=== PATIENT | male | born 1960 | race Caucasian/White ===

== ENCOUNTER 2018-10-23 15:04 | Inpatient (IN) ==
[2018-10-23] MEDS ORDERED: NITROGLYCERIN 2% OINT 1 INCH/GM PACK TOP STA (15:35)
[2018-10-23] MEDS ORDERED: ASPIRIN 325 MG TABLET PO STA (15:35)
[2018-10-23] MEDS ORDERED: ENOXAPARIN 100 MG/ML SYRINGE SUBCUT STA (15:35)
[2018-10-23] MEDS ORDERED: NITROGLYCERIN SL 0.4 MG TABLET SL PRN (15:35)
[2018-10-23] MEDS ORDERED: MAGNESIUM SULF RIDER 2 GM in PREMIX 1 EACH IV PRN (15:48)
[2018-10-23] MEDS ORDERED: MORPHINE 4 MG/1 ML VIAL IV PRN (15:48)
[2018-10-23] MEDS ORDERED: ONDANSETRON 4 MG/2 ML VIAL IV PRN (15:48)
[2018-10-23] MEDS ORDERED: MAGNESIUM SULF RIDER 4 GM in PREMIX 1 EACH IV PRN (15:48)
[2018-10-23] MEDS ORDERED: SODIUM CHLORIDE 0.45% 1,000 ML IV SCH (16:00)
[2018-10-23] MEDS ORDERED: diphenhydrAMINE CAP 25 MG CAPSULE PO PRN (17:43)
[2018-10-23] MEDS ORDERED: NICOTINE 21 MG/24 HR PATCH TRANSDERM PRN (17:43)
[2018-10-23] MEDS ORDERED: diphenhydrAMINE CAP 25 MG CAPSULE PO ONE (17:43)
[2018-10-23] MEDS ORDERED: guaiFENesin/DM ER 600-30 MG TABLET PO PRN (17:43)
[2018-10-23] MEDS ORDERED: ZALEPLON 5 MG CAPSULE PO PRN (17:43)
[2018-10-23] MEDS ORDERED: ACETAMINOPHEN 325 MG TABLET PO PRN (17:43)
[2018-10-23] MEDS ORDERED: DOCUSATE SODIUM 100 MG CAPSULE PO PRN (17:43)
[2018-10-23] MEDS ORDERED: BISACODYL 5 MG TABLET PO PRN (17:43)
[2018-10-23] MEDS ORDERED: DIAZEPAM 5 MG TABLET PO ONE (17:43)
[2018-10-23] MEDS: HYDROXYCHLOROQUINE 200 MG TABLET PO SCH (21:06)
[2018-10-23] MEDS: NITROGLYCERIN 2% OINT 1 INCH/GM PACK TOP SCH (21:06)
[2018-10-23] MEDS: METOPROLOL TARTRATE 25 MG TABLET PO SCH (21:06)
[2018-10-23] MEDS: ENOXAPARIN 100 MG/ML SYRINGE SUBCUT SCH (21:06)
[2018-10-23 22:38] LABS: Apearance,Urine CLEAR (Clear); Bilirubin,Urine Negative (Negative); Blood, Urine Moderate mg/dL (Negative); Glucose,Urine (UA) Negative (Negative); Ketones,Urine Negative (Negative); Mucus,Urine Occasional /LPF (Occasional); Nitrite,Urine Negative (Negative); Protein,Urine Negative; RBC,Urine 2 /HPF (0-4); Squamous Epithelial Cell,Urine Occasional /HPF (0-10); Urine Color Yellow (Yellow); Urine Specific Gravity 1.018 (1.001-1.035); Urine Urobilinogen < 2.0 EU/DL (0.2-1.0); WBC,Urine <1 /HPF (0-6)
[2018-10-24 01:03] LABS: Basophils # 0.1 10*3/uL (0.0-0.2); Basophils % 0.5 % (0.0-0.8); Eosinophils # 0.7 10*3/uL (0.0-0.87); Eosinophils % 7.1 % (0.00-10.9); Hematocrit 40.8 VOL% (42.0-52.0); Hemoglobin 13.1 GM/DL (14.0-18.0); Immature Granulocytes % 0.4 %; Immature Granulocytes Absolute 0.04 #; Lymphocytes # 3.4 10*3/uL (1.4-4.0); Lymphocytes % 35.5 % (21.2-54.2); Mean Corpuscular HGB Conc 32.1 GM/DL (32-36); Mean Corpuscular Hemoglobin 34 PG (27-34); Mean Corpuscular Volume 104.9 FL (87-102); Mean Platelet Volume 9.6 FL (9.6-12.0); Monocytes # 0.8 10*3/uL (0.11-0.8); Monocytes % 8.4 % (1.7-12.7); Neutrophils # 4.6 10*3/uL (1.4-7.4); Neutrophils % 48.1 % (38.7-73.9); Platelet Count 171 T/CUMM (130-400); Red Blood Count 3.89 MC/CUMM (3.8-5.5); Red Cell Distribution Width 12.1 % (9.3-17.3); White Blood Count 9.5 T/CUMM (4-12)
[2018-10-24 01:21] LABS: Calcium 8.2 MG/DL (8.5-10.1); Osmolality,Calculated 281.4 MOS/KG (273-304)
[2018-10-24 01:42] LABS: Risk Ratio 7.68; VLDL CHOLESTEROL 93.8 MG/DL
[2018-10-24] MEDS ORDERED: SODIUM CHLORIDE 0.9% 1,000 ML IV SCH ×2 (05:00→10:00)
[2018-10-24] MEDS ORDERED: diphenhydrAMINE CAP 50 MG CAPSULE ONE (08:20)
[2018-10-24] MEDS ORDERED: DIAZEPAM 5 MG TABLET ONE (08:21)
[2018-10-24] MEDS: LISINOPRIL 20 MG TABLET PO SCH (08:26)
[2018-10-24] MEDS: METOPROLOL TARTRATE 25 MG TABLET PO SCH ×2 (08:26→21:41)
[2018-10-24] MEDS: PANTOPRAZOLE 40 MG TABLET PO SCH (08:26)
[2018-10-24] MEDS: HYDROXYCHLOROQUINE 200 MG TABLET PO SCH ×2 (08:27→21:42)
[2018-10-24] MEDS: ENOXAPARIN 100 MG/ML SYRINGE SUBCUT SCH ×2 (08:27→21:41)
[2018-10-24] MEDS ORDERED: HYDROmorphone 2 MG/1 ML VIAL ONE (08:45)
[2018-10-24] MEDS ORDERED: NITROGLYCERIN DRIP 50 MG/250 ML BOTTLE IV ONE (08:45)
[2018-10-24] MEDS ORDERED: VERAPAMIL 5 MG/2 ML VIAL ONE (08:45)
[2018-10-24] MEDS ORDERED: MIDAZOLAM 2 MG/2 ML VIAL ONE (08:46)
[2018-10-24] MEDS ORDERED: ASPIRIN 325 MG TABLET PO SCH (09:00)
[2018-10-24] MEDS ORDERED: BIVALIRUDIN 250 MG VIAL IV ONE (09:28)
[2018-10-24] MEDS ORDERED: TICAGRELOR 90 MG TABLET ONE (09:33)
[2018-10-24] MEDS ORDERED: NITROGLYCERIN SL 0.4 MG TABLET SL ONE (10:01)
[2018-10-24] MEDS: NITROGLYCERIN 2% OINT 1 INCH/GM PACK TOP SCH ×2 (10:49→21:42)
[2018-10-24] MEDS: TICAGRELOR 90 MG TABLET PO SCH (21:42)
[2018-10-25 05:27] LABS: Basophils # 0.1 10*3/uL (0.0-0.2); Basophils % 0.5 % (0.0-0.8); Eosinophils # 0.6 10*3/uL (0.0-0.87); Eosinophils % 5.8 % (0.00-10.9); Hematocrit 44.7 VOL% (42.0-52.0); Hemoglobin 14.1 GM/DL (14.0-18.0); Immature Granulocytes % 0.4 %; Immature Granulocytes Absolute 0.04 #; Lymphocytes # 2.8 10*3/uL (1.4-4.0); Lymphocytes % 29.1 % (21.2-54.2); Mean Corpuscular HGB Conc 31.5 GM/DL (32-36); Mean Corpuscular Hemoglobin 33 PG (27-34); Mean Corpuscular Volume 104.7 FL (87-102); Monocytes # 0.8 10*3/uL (0.11-0.8); Monocytes % 8.3 % (1.7-12.7); Neutrophils # 5.3 10*3/uL (1.4-7.4); Neutrophils % 55.9 % (38.7-73.9); Platelet Count 180 T/CUMM (130-400); Red Blood Count 4.27 MC/CUMM (3.8-5.5); Red Cell Distribution Width 12.1 % (9.3-17.3); White Blood Count 9.5 T/CUMM (4-12)
[2018-10-25 05:49] LABS: Calcium 8.8 MG/DL (8.5-10.1); Osmolality,Calculated 279.4 MOS/KG (273-304); Potassium 4.2 MMOL/L (3.5-5.1)
[2018-10-25] MEDS: PANTOPRAZOLE 40 MG TABLET PO SCH (08:27)
[2018-10-25] MEDS: METOPROLOL TARTRATE 25 MG TABLET PO SCH (08:27)
[2018-10-25] MEDS: TICAGRELOR 90 MG TABLET PO SCH (08:27)
[2018-10-25] MEDS: LISINOPRIL 20 MG TABLET PO SCH (08:27)
[2018-10-25] MEDS: HYDROXYCHLOROQUINE 200 MG TABLET PO SCH (08:27)
[2018-10-25] MEDS: ENOXAPARIN 100 MG/ML SYRINGE SUBCUT SCH (08:28)
[2018-10-25] MEDS ORDERED: ASPIRIN EC 81 MG TABLET PO SCH (09:00)
[2018-10-25 13:09] VITALS: BP 122/73
== END 2018-10-25 12:47 | disposition home or self-care (01) | DRG 247 ==
LOC: EDBD → EDUNIT# → N.ED 15:04 → N.TELEN 15:48
PROVIDERS: ADMIT Internal Medicine Cardiovascular Disease; ATTEND Internal Medicine Cardiovascular Disease